=== PATIENT | male | born 1975 | race Caucasian/White ===

== ENCOUNTER 2017-02-12 09:53 | Emergency (ER) | payer MEDICAID, OTHER ==
[2017-02-12 10:08] VITALS: BP 116/79; PULSE 101; RESP 16; TEMP 98.6; O2SAT 96
== END 2017-02-12 10:16 | disposition left against medical advice (07) ==
LOC: ED 09:53
DX: Z02.89 Encounter for other administrative examinations (principal); M54.9 Dorsalgia, unspecified